=== PATIENT | male | born 1995 | race Caucasian/White ===

== ENCOUNTER 2022-02-23 11:14 | Outpatient (REF) | payer OTHER, SELFPAY | END 2022-02-23 11:15 | disposition home or self-care (01) | LOC: HO.LAB 11:14 | PROVIDERS: Visit Provider Nurse Practitioner Family | DX: Z20.822 Contact with and (suspected) exposure to COVID-19 (principal); R50.9 Fever, unspecified; R52 Pain, unspecified | CPT/HCPCS: U0003; U0005 ==